=== PATIENT | female | born 1975 | race Caucasian/White ===

== ENCOUNTER → 2019-06-28 | Outpatient (CLI) | payer BC, OTHER ==
[~2019-06-28] MED LIST: CETI10CA PO; CHOL40002 PO; FLUT9.9S IH; HYDR-3240 PO; LACT1CAP40 PO; MAGN250T8 PO; MULT-732 PO; [UNRECOGNIZED DRUG - OTHER] EACH EAR
== END | disposition home or self-care (01) ==
LOC: STAR 14:17
PROVIDERS: ATTEND Surgery
DX: Z01.818 Encounter for other preprocedural examination (principal); Z11.59 Encounter for screening for other viral diseases
CPT/HCPCS: 36415; 84432; 86800; U0001

== ENCOUNTER 2019-07-02 06:39 | Inpatient (IN) | payer BC, OTHER ==
[~2019-07-02] VITALS: Ht 167.6 cm; Wt 65.0 kg
[~2019-07-02 06:39] MED LIST changes: -HYDR-3240 PO
[2019-07-02] MEDS ORDERED: LACTATED RINGERS 1,000 ML IV SCH ×2 (07:01→17:00)
[2019-07-02] MEDS ORDERED: CHLORHEXIDINE 15 ML UDC MM STA (07:01)
[2019-07-02] MEDS ORDERED: CHLORHEXIDINE 15 ML UDC ONE (07:08)
[2019-07-02] MEDS ORDERED: MIDAZOLAM 1 MG/ML, 2ML ONE ×2 (07:32→11:43)
[2019-07-02] MEDS ORDERED: FENTANYL PF 250 MCG/5ML ONE ×2 (07:32→11:26)
[2019-07-02] MEDS ORDERED: CEFAZOLIN 1,000 MG ONE (07:40)
[2019-07-02] MEDS ORDERED: PROPOFOL 10 MG/ML, 20ML ONE (07:40)
[2019-07-02] MEDS ORDERED: DEXAMETHASONE 4 MG/ML, 1ML ONE (07:40)
[2019-07-02] MEDS ORDERED: ONDANSETRON 2MG/ML, 2ML ONE (07:40)
[2019-07-02] MEDS ORDERED: SUCCINYLCHOLINE 20 MG/ML, 10ML ONE (07:40)
[2019-07-02 07:41] LABS: HCG UR SG 1.014 (1.003-1.030)
[2019-07-02] MEDS ORDERED: HYDROmorphone 1 MG/ML, 1ML INJ IVPush PRN (08:30)
[2019-07-02] MEDS ORDERED: hydrALAzine 20 MG/ML, 1ML IV PRN (08:30)
[2019-07-02] MEDS ORDERED: FENTANYL PF 100 MCG/2ML IV PRN (08:30)
[2019-07-02] MEDS ORDERED: LABETALOL 5MG/ML, 20ML IV PRN (08:30)
[2019-07-02] MEDS ORDERED: morphine SULFATE 10 MG/ML, 1ML IVPush PRN (08:30)
[2019-07-02] MEDS ORDERED: PROMETHAZINE 25 MG/ML, 1ML IVPush PRN (08:30)
[2019-07-02] MEDS ORDERED: HALOPERIDOL 5 MG/ML IV PRN (08:30)
[2019-07-02] MEDS ORDERED: ACETAMINOPHEN 325 MG TABLET PO PRN (08:30)
[2019-07-02] MEDS ORDERED: FENTANYL PF 100 MCG/2ML ONE ×2 (08:42→11:35)
[2019-07-02] MEDS ORDERED: MEPERIDINE/PF 25MG/ML,1ML ONE (09:27)
[2019-07-02] MEDS ORDERED: OXYcodone 5 MG/5 ML ORAL.SOL UDC ONE (09:28)
[2019-07-02] MEDS: OXYcodone 5 MG/5 ML ORAL.SOL UDC PO PRN ×2 (09:30→14:55)
[2019-07-02] MEDS: MEPERIDINE/PF 25MG/0.5ML IVPush PRN (09:35)
[2019-07-02] MEDS ORDERED: PHENYLEPHRINE 10 MG/ML ONE (11:08)
[2019-07-02] MEDS ORDERED: MIDAZOLAM 1 MG/ML, 2ML IV PRN (12:00)
[2019-07-02] MEDS ORDERED: HYDR-3240 PO (16:52)
[2019-07-02] MEDS ORDERED: morphine SULFATE 10 MG/ML, 1ML IV PRN (17:00)
[2019-07-02] MEDS ORDERED: CETIRIZINE 10 MG TABLET PO PRN (17:00)
[2019-07-02] MEDS ORDERED: ONDANSETRON 2MG/ML, 2ML IV PRN (17:00)
[2019-07-02 20:10] VITALS: BP 131/74
[2019-07-02] MEDS: HYDROcodone/APAP 5/325 TABLET PO PRN (20:44)
[2019-07-03 00:46] VITALS: BP 118/77
[2019-07-03] MEDS: HYDROcodone/APAP 5/325 TABLET PO PRN ×2 (03:09→07:57)
[2019-07-03 03:41] VITALS: BP 117/70
[2019-07-03 04:44] VITALS: BP 117/70
[2019-07-03 08:00] VITALS: BP 127/77
[2019-07-03] MEDS ORDERED: LACTOBACILLUS CHEW TABLET PO SCH (09:00)
[2019-07-03] MEDS ORDERED: MAGNESIUM OXIDE 400 MG TABLET PO SCH (09:00)
[2019-07-03] MEDS ORDERED: MULTIVITAMINS/MINERALS TABLET PO SCH (09:00)
[2019-07-03] MEDS ORDERED: FLUTICASONE NASAL SPRAY 16GM NAS SCH (09:00)
[2019-07-03] MEDS ORDERED: CHOLECALCIFEROL 1,000 UNIT TABLET PO SCH (09:00)
[2019-07-03 09:43] VITALS: BP 122/77
== END 2019-07-03 09:49 | disposition home or self-care (01) | DRG 627 ==
LOC: OUT 06:39 → 4NE 15:59 → OUT 19:13
PROVIDERS: ADMIT Surgery; ATTEND Surgery
PROC: 0GBJ0ZZ Excision of Thyroid Gland Isthmus, Open Approach (ICD-10-PCS; 2019-07-02)
PROC: 0WJ60ZZ Inspection of Neck, Open Approach (ICD-10-PCS; 2019-07-02)
PROC: 0GTG0ZZ Resection of Left Thyroid Gland Lobe, Open Approach (ICD-10-PCS; principal; 2019-07-02 08:30)
DX: E07.9 Disorder of thyroid, unspecified (principal)
CPT/HCPCS: 81025; 88307; G0378; J0690; J1100; J2175; J2250; J2405; J2704; J3010; J0330; J2370; J7120